=== PATIENT | female | born 1930 | race Caucasian/White ===

== ENCOUNTER 2017-02-25 22:05 | Emergency (ER) | payer MEDICARE ==
[~2017-02-25] VITALS: Ht 160 cm; Wt 68.0 kg
[~2017-02-25 22:05] MED LIST: ASPI81TA2 PO; CALC-157 PO; FISH1CAP16 PO; HYDR12.585 PO; LIP80 PO; METO25TA6 PO; NOR10 PO; RALO60TA PO; [UNRECOGNIZED DRUG - OTHER] PO; [UNRECOGNIZED DRUG - OTHER] PO
--- NOTE | 2017-02-25 22:05 | NUR ---
CHUCHO CARRION at bedside examining patient.
--- NOTE | 2017-02-25 22:05 | NUR ---
PT STATES SHE WAS HAVING CHEST PAIN 8/10, TIGHTNESS FEELING THAT RADIATES ALL OVER CHEST. NO SOB OR DISTRESS, NO N/V, NO HEADACHE. STATES NOW PAIN IS 5/10. A/OX4, AFEBRILE. SAFETY PRECAUTIONS IN PLACE, WILL CONTINUE TO MONITOR.
--- NOTE | 2017-02-25 22:05 | NUR ---
Placed in room 1. Placed on commercial estimator, blood pressure machine and pulse oximeter. To gown for exam. Side rails up. Report given to Shaina SANCHES.
[2017-02-25 22:07] VITALS: BP_SYST 134
[2017-02-25] MEDS ORDERED: MORPHINE 2 MG/ML INJ. SYRINGE IVP ONE (22:15)
[2017-02-25] MEDS ORDERED: MORPHINE 2 MG/ML INJ. SYRINGE ONE (22:30)
[2017-02-25 22:36] LABS: BASOPHILS % (AUTO) 0.3 % (0.0-2.0); EOSINOPHILS # (AUTO) 0.2 K/uL (0.0-0.4); EOSINOPHILS % (AUTO) 2.5 % (0.0-4.0); HEMATOCRIT 31.3 % (36-48); HEMOGLOBIN 10.2 g/dL (12.0-16.0); LYMPHOCYTES # (AUTO) 0.8 K/uL (1.0-5.5); LYMPHOCYTES % (AUTO) 9.3 % (20.5-51.5); MEAN CORPUSCULAR HEMOGLOBIN 31 pg (27-31); MEAN CORPUSCULAR HGB CONC 33 % (32-36); MEAN CORPUSCULAR VOLUME 94 fL (79.0-98.0); MONOCYTES # (AUTO) 0.6 K/uL (0.0-1.0); MONOCYTES % (AUTO) 7.5 % (1.7-9.3); NEUTROPHILS # (AUTO) 6.5 K/uL (1.8-7.7); NEUTROPHILS % (AUTO) 80.4 % (40.0-70.0); PLATELET COUNT (AUTO) 176 K/uL (130-430); RED BLOOD CELL COUNT(AUTO) 3.32 MIL/uL (4.2-6.2); RED CELL DISTRIBUTION WIDTH 13.2 % (9.0-15.0); WHITE BLOOD COUNT (AUTO) 8.1 K/uL (4.8-10.8)
[2017-02-25 22:46] LABS: ANION GAP 8 (5-15); CHLORIDE 106 mmol/L (98-107); CREATININE 3.32 mg/dL (0.55-1.30); GLUCOSE 151 mg/dL (70-99); POTASSIUM 4.3 mmol/L (3.5-5.1); SODIUM SERUM 142 mmol/L (136-145); UREA NITROGEN, BLOOD 82 mg/dL (8-21)
[2017-02-25 22:50] LABS: PROTHROMBIN TIME 10.4 SECS (9.5-12.5)
[2017-02-25 22:51] LABS: ALANINE AMINOTRANSFERASE 71 U/L (12-78); ALBUMIN 3.1 g/dL (3.4-4.8); ASPARTATE AMINOTRANSFERASE 70 U/L (10-37); CHOLESTEROL 151 mg/dL (<200); HDL CHOLESTEROL 48 mg/dL (>55); LDL CHOLESTEROL 74 mg/dL (<100); TOTAL BILIRUBIN 0.3 mg/dL (0.0-1.0); TOTAL PROTEIN, SERUM 6.7 g/dL (6.4-8.3); TRIGLYCERIDES 173 mg/dL (30-150)
--- NOTE | 2017-02-26 03:00 | NUR ---
Patient to be transferred to [facility]. Is being transferred due to higher level of care. Receiving facility has accepting physician and available space. ER physician has signed transfer form. Patient or responsible republican has agreed to transfer and signed form. Patient belongings inventoried and will be sent with patient. Copy of nursing notes, lab reports, EKG, Physicians Orders and X-rays to be sent with patient. Report called to NURSE DURAN at receiving facility. Receiving physician is DR. KRAMER. [facility] ambulance service HERE for transfer [facility]
[2017-02-26 03:01] VITALS: BP_SYST 155
--- NOTE | 2017-02-26 03:01 | NUR ---
[facility] NURSE DURAN.
== END 2017-02-26 03:01 | disposition short-term general hospital (02) ==
LOC: SED 22:05
DX: R07.89 Other chest pain (principal); I10 Essential (primary) hypertension; Z88.2 Allergy status to sulfonamides; Z88.8 Allergy status to other drugs, medicaments and biological substances; Z91.048 Other nonmedicinal substance allergy status
CPT/HCPCS: 36415; 71010; 80053; 80061; 83880; 84484; 85025; 85610; 85730; 93005; 96374; 99285; J2270

== ENCOUNTER 2019-09-08 03:46 | Inpatient (IN) | payer MEDICARE ==
[~2019-09-08] VITALS: Ht 165.1 cm; Wt 56.8 kg
[2019-09-08] VITALS (7 sets, daily range): BP systolic 111–177
[~2019-09-08 03:46] MED LIST changes: +ASPI-1155 PO; -ASPI81TA2 PO
[2019-09-08 05:13] LABS: BASOPHILS # (AUTO) 0.1 K/uL (0.0-0.2); BASOPHILS % (AUTO) 0.5 % (0.0-2.0); EOSINOPHILS # (AUTO) 0.2 K/uL (0.0-0.4); EOSINOPHILS % (AUTO) 1.6 % (0.0-4.0); HEMATOCRIT 33.6 % (36-48); LYMPHOCYTES % (AUTO) 7.3 % (20.5-51.5); MEAN CORPUSCULAR HEMOGLOBIN 33 pg (27-31); MEAN CORPUSCULAR HGB CONC 33 % (32-36); MEAN CORPUSCULAR VOLUME 100 fL (79.0-98.0); MONOCYTES # (AUTO) 0.8 K/uL (0.0-1.0); MONOCYTES % (AUTO) 6.1 % (1.7-9.3); NEUTROPHILS # (AUTO) 11.4 K/uL (1.8-7.7); NEUTROPHILS % (AUTO) 84.5 % (40.0-70.0); PLATELET COUNT (AUTO) 321 K/uL (130-430); RED BLOOD CELL COUNT(AUTO) 3.35 MIL/uL (4.2-6.2); RED CELL DISTRIBUTION WIDTH 17.2 % (9.0-15.0); WHITE BLOOD COUNT (AUTO) 13.4 K/uL (4.8-10.8)
[2019-09-08 05:26] LABS: ANION GAP 7 (5-15); CALCIUM 9.3 mg/dL (8.4-11.0); CHLORIDE 94 mmol/L (98-107); CREATININE 6.46 mg/dL (0.55-1.30); GLUCOSE 125 mg/dL (70-99); SODIUM SERUM 134 mmol/L (136-145); UREA NITROGEN, BLOOD 95 mg/dL (8-21)
[2019-09-08 05:31] LABS: INR 1.1 (0.8-1.2); PROTHROMBIN TIME 10.9 SECS (9.5-12.5)
[2019-09-08 05:32] LABS: ALANINE AMINOTRANSFERASE 46 U/L (12-78); ALBUMIN 2.7 g/dL (3.4-4.8); ASPARTATE AMINOTRANSFERASE 51 U/L (10-37); TOTAL BILIRUBIN 0.4 mg/dL (0.0-1.0)
[2019-09-08] MEDS ORDERED: FURO-149 PO (06:13)
[2019-09-08] MEDS ORDERED: LIP40 PO (06:13)
[2019-09-08] MEDS ORDERED: ESCI10TA PO (06:13)
[2019-09-08] MEDS ORDERED: MEGE40TA PO (06:20)
[2019-09-08] MEDS ORDERED: CALC667T6 PO (06:20)
[2019-09-08] MEDS ORDERED: VITD2000 PO (06:20)
[2019-09-08] MEDS ORDERED: ENOXAPARIN SODIUM 40 MG/0.4 ML SYRINGE SUBCUT ONE (06:30)
[2019-09-08] MEDS ORDERED: cefTRIAXone 1 GM in D5W 50 ML IV ONE (06:30)
[2019-09-08] MEDS ORDERED: ENOXAPARIN SODIUM 60 MG/0.6 ML SYRINGE SUBCUT ONE (06:45)
[2019-09-08] MEDS ORDERED: cefTRIAXone 1 GM VIAL ONE (06:52)
[2019-09-08] MEDS ORDERED: ENOXAPARIN SODIUM 40 MG/0.4 ML SYRINGE ONE (06:55)
[2019-09-08] MEDS ORDERED: ENOXAPARIN SODIUM 60 MG/0.6 ML SYRINGE ONE (06:56)
[2019-09-08] MEDS ORDERED: ACETAMINOPHEN 500 MG TABLET PO ONE (08:30)
[2019-09-08] MEDS ORDERED: LevALBUTEROL HCL 1.25 MG/0.5 ML *CONC.* VIAL.NEB (XOPENEX CONC.) INH PRN (14:30)
[2019-09-08] MEDS ORDERED: ATORVASTATIN 20 MG TABLET PO ONE (14:30)
[2019-09-08] MEDS ORDERED: ASPIRIN 81 MG TAB.CHEW PO ONE (14:45)
[2019-09-08] MEDS ORDERED: FUROSEMIDE 40 MG TABLET PO ONE (14:45)
[2019-09-08] MEDS ORDERED: MEGESTROL ACETATE 40 MG TABLET PO ONE (14:45)
[2019-09-08] MEDS ORDERED: CHOLECALCIFEROL (VITAMIN D3) 2,000 UNIT TABLET PO ONE (14:45)
[2019-09-08] MEDS ORDERED: CITALOPRAM HYDROBROMIDE 20 MG TABLET PO ONE (14:45)
[2019-09-08] MEDS ORDERED: VITAMIN B COMPLEX 1 CAP/TAB PO ONE (14:45)
[2019-09-08] MEDS ORDERED: METOPROLOL TARTRATE 25 MG TABLET PO ONE (14:45)
[2019-09-08] MEDS ORDERED: ACETAMINOPHEN 325 MG TABLET PO PRN (15:00)
[2019-09-08] MEDS: LevALBUTEROL HCL 1.25 MG/0.5 ML *CONC.* VIAL.NEB (XOPENEX CONC.) INH SCH ×2 (16:08→23:10)
[2019-09-08] MEDS: CALCIUM ACETATE 667 MG CAP PO SCH (17:25)
[2019-09-08] MEDS: MEGESTROL ACETATE 40 MG TABLET PO SCH (22:04)
[2019-09-08] MEDS: METOPROLOL TARTRATE 25 MG TABLET PO SCH (22:04)
[2019-09-09] VITALS (8 sets, daily range): BP systolic 100–159
[2019-09-09 08:19] LABS: BASOPHILS # (AUTO) 0.1 K/uL (0.0-0.2); BASOPHILS % (AUTO) 0.6 % (0.0-2.0); EOSINOPHILS # (AUTO) 0.2 K/uL (0.0-0.4); EOSINOPHILS % (AUTO) 1.6 % (0.0-4.0); HEMATOCRIT 32.5 % (36-48); HEMOGLOBIN 10.8 g/dL (12.0-16.0); LYMPHOCYTES # (AUTO) 1.8 K/uL (1.0-5.5); MEAN CORPUSCULAR HEMOGLOBIN 33 pg (27-31); MEAN CORPUSCULAR HGB CONC 33 % (32-36); MEAN CORPUSCULAR VOLUME 101 fL (79.0-98.0); MONOCYTES # (AUTO) 0.9 K/uL (0.0-1.0); NEUTROPHILS # (AUTO) 8.1 K/uL (1.8-7.7); NEUTROPHILS % (AUTO) 73.8 % (40.0-70.0); PLATELET COUNT (AUTO) 274 K/uL (130-430); RED BLOOD CELL COUNT(AUTO) 3.23 MIL/uL (4.2-6.2); RED CELL DISTRIBUTION WIDTH 16.8 % (9.0-15.0)
[2019-09-09 08:52] LABS: ANION GAP 11 (5-15); CALCIUM 9.5 mg/dL (8.4-11.0); CHLORIDE 99 mmol/L (98-107); CREATININE 4.89 mg/dL (0.55-1.30); GLUCOSE 97 mg/dL (70-99); SODIUM SERUM 137 mmol/L (136-145); UREA NITROGEN, BLOOD 56 mg/dL (8-21)
[2019-09-09] MEDS ORDERED: ASPIRIN 81 MG TAB.CHEW PO SCH (09:00)
[2019-09-09] MEDS ORDERED: FUROSEMIDE 40 MG TABLET PO SCH (09:00)
[2019-09-09] MEDS ORDERED: VITAMIN B COMPLEX 1 CAP/TAB PO SCH (09:00)
[2019-09-09] MEDS ORDERED: CITALOPRAM HYDROBROMIDE 20 MG TABLET PO SCH (09:00)
[2019-09-09] MEDS ORDERED: CHOLECALCIFEROL (VITAMIN D3) 2,000 UNIT TABLET PO SCH (09:00)
[2019-09-09] MEDS: METOPROLOL TARTRATE 25 MG TABLET PO SCH ×2 (09:00→20:39)
[2019-09-09] MEDS ORDERED: ATORVASTATIN 20 MG TABLET PO SCH (09:00)
[2019-09-09] MEDS: LevALBUTEROL HCL 1.25 MG/0.5 ML *CONC.* VIAL.NEB (XOPENEX CONC.) INH SCH ×2 (10:14→16:35)
[2019-09-09] MEDS: CALCIUM ACETATE 667 MG CAP PO SCH ×4 (10:16→18:06)
[2019-09-09] MEDS: MEGESTROL ACETATE 40 MG TABLET PO SCH ×2 (10:17→20:39)
== END 2019-09-09 21:53 | disposition short-term general hospital (02) | DRG 280 ==
LOC: SED 03:46 → STU 10:13
PROVIDERS: ADMIT Family Medicine; ATTEND Family Medicine
PROC: 5A1D70Z Performance of Urinary Filtration, Intermittent, Less than 6 Hours Per Day (ICD-10-PCS; principal; 2019-09-08)
PROC: 5A09357 Assistance with Respiratory Ventilation, Less than 24 Consecutive Hours, Continuous Positive Airway Pressure (ICD-10-PCS; 2019-09-08)
DX: I21.A1 Myocardial infarction type 2 (principal); J96.00 Acute respiratory failure, unspecified whether with hypoxia or hypercapnia; I50.33 Acute on chronic diastolic (congestive) heart failure; N18.6 End stage renal disease; E43 Unspecified severe protein-calorie malnutrition; I13.2 Hypertensive heart and chronic kidney disease with heart failure and with stage 5 chronic kidney disease, or end stage renal disease; M81.0 Age-related osteoporosis without current pathological fracture; F41.9 Anxiety disorder, unspecified; M19.90 Unspecified osteoarthritis, unspecified site; E78.5 Hyperlipidemia, unspecified; Z85.51 Personal history of malignant neoplasm of bladder; I73.9 Peripheral vascular disease, unspecified; Z99.2 Dependence on renal dialysis; Z98.891 History of uterine scar from previous surgery; Z88.8 Allergy status to other drugs, medicaments and biological substances; Z88.2 Allergy status to sulfonamides; Z79.899 Other long term (current) drug therapy; Z79.82 Long term (current) use of aspirin; Z68.20 Body mass index [BMI] 20.0-20.9, adult
CPT/HCPCS: 36415; 36600; 71045; 80048; 80053; 82550-TC; 82803-TC; 83605; 83880; 84484; 85025; 85379; 85610-TC; 85730-TC; 87040-TC; 87081; 90935; 93005; 96365; 96372; 99285; G0378; J0696; J1650; J7030; J7612